=== PATIENT | male | born 2000 | race African-American/Black ===

== ENCOUNTER 2022-02-07 11:20 | Emergency (ER) | payer OTHER ==
[~2022-02-07] VITALS: Ht 175.3 cm; Wt 104.5 kg
[2022-02-07 11:21] VITALS: BP 137/83
== END 2022-02-07 12:29 | disposition home or self-care (01) ==
LOC: M ED 11:20
DX: S60.012A Contusion of left thumb without damage to nail, initial encounter (principal); S63.602A Unspecified sprain of left thumb, initial encounter

== ENCOUNTER 2023-02-04 17:03 | Emergency (ER) | payer OTHER ==
[~2023-02-04] VITALS: Ht 175.3 cm; Wt 126.3 kg
[2023-02-04 20:07] VITALS: BP 139/88; TEMP 98.4; O2SAT 99
== END 2023-02-04 20:10 | disposition home or self-care (01) ==
LOC: M ED 17:03
DX: S63.602A Unspecified sprain of left thumb, initial encounter (principal); S90.935A Unspecified superficial injury of left lesser toe(s), initial encounter; Y92.9 Unspecified place or not applicable; Y93.89 Activity, other specified; Y99.1 Military activity

== ENCOUNTER 2025-02-15 15:46 | Emergency (ER) | payer OTHER ==
[~2025-02-15] VITALS: Ht 175.3 cm; Wt 134.4 kg
[2025-02-15] MEDS ORDERED: SYNT50TA (15:57)
[2025-02-15] MEDS ORDERED: BETA115CR (15:57)
[2025-02-15 18:57] LABS: BASO # 0.0 10^3/uL (0.0-0.2); BASO % 0.5 % (0.0-1.0); EOS # 0.2 10^3/uL (0.0-0.5); EOS % 3.4 % (0.0-3.0); LYMPH # 2.4 10^3/uL (1.5-5.0); LYMPH % 40.5 % (24.0-44.0); MONO # 0.4 10^3/uL (0.0-0.8); MONO % 6.8 % (2.0-8.0); NEUTROPHILS # 2.8 10^3/uL (1.5-8.5); NEUTROPHILS % 48.6 % (36.0-66.0); PLATELET COUNT, AUTOMATED 297 10^3/uL (150-450)
[2025-02-15 19:20] LABS: INR 1.03
[2025-02-15 19:21] LABS: ALT/SGPT 48 U/L (7.0-40); AST/SGOT 34 U/L (<34); CALCIUM LEVEL 8.9 MG/DL (8.5-10.1); CARBON DIOXIDE LEVEL 26 MMOL/L (20-31); CHLORIDE LEVEL 107 MMOL/L (98-107); CREATININE FOR GFR 1.03 MG/DL (0.70-1.30); GLOMERULAR FILTRATION RATE > 90.0 (>60); POTASSIUM SERUM 4.5 MMOL/L (3.5-5.1); SODIUM LEVEL 142 MMOL/L (136-145)
[2025-02-15] MEDS ORDERED: ISOVUE-370 76% 100 ML VIAL As Ordered ONE (19:59)
[2025-02-15 21:45] VITALS: BP 131/81; O2SAT 96
[2025-02-15 22:01] VITALS: TEMP 98
== END 2025-02-15 22:02 | disposition home or self-care (01) ==
LOC: M ED 15:46
DX: K62.5 Hemorrhage of anus and rectum (principal); Z79.899 Other long term (current) drug therapy
CPT/HCPCS: 36415; 74174; 80053; 85025; 85610; 85730; 87507; 99284; Q9967